=== PATIENT | male | born 1940 | race Caucasian/White ===

== ENCOUNTER 2018-05-21 13:25 | Emergency (ER) | payer OTHER ==
--- NOTE | 2018-05-21 14:46 | EDPHY ---
H & P Time Seen by Provider: 05/21/18 13:34 HPI/ROS: CHIEF COMPLAINT: Abscess on buttock HISTORY OF PRESENT ILLNESS: Patient states, using computer generated verbal communication as has ALS, he has had an abscess on his left buttock for about 3 days. Only painful over the last 24 hr. No fevers or chills. No other lesions. No nausea, vomiting, diarrhea. Patient is wheelchair dependent but does care for himself. Currently his is in rehab after hip fracture. Contents of 10 point review of systems otherwise negative except for what is mentioned in HPI. General Appearance: Alert, no distress. Eyes: Pupils equal and round no icterus Respiratory: No respiratory distress Neurological: Awake, alert, global weakness and rigidity secondary to AL as Skin: Warm and dry, no rashes. 1.5 cm fluctuant abscess to the left buttock Musculoskeletal: Fairly mobile upper extremities, lower extremities hyperreflexic and weak. No acute changes. Psychiatric: Patient is oriented X 3, there is no agitation. Medical/surgical history: ALS. Tonsillectomy. Social history: No tobacco, EtOH, drugs. Smoking Status: Former smoker Constitutional: Initial Vital Signs Temperature (C) 36.4 C 05/21/18 13:34 Heart Rate 80 05/21/18 13:34 Respiratory Rate 18 05/21/18 13:34 Blood Pressure 132/88 H 05/21/18 13:34 O2 Sat (%) 94 05/21/18 13:34 O2 Delivery Mode Room Air Allergies/Adverse Reactions: Sulfa (Sulfonamide Antibiotics) Allergy (Verified 05/21/18 13:29) Swelling/neck,face,throat Home Medications: Medication Instructions Recorded ZYRTEC 01/19/11 Pravastatin Sodium 05/26/14 Eye Vitamin 05/21/18 Neudxa 05/21/18 Medical Decision Making Procedures: Procedure: Abscess drainage. The patient's abscess was located on the left buttock. I obtained verbal consent from the patient to drain the abscess who was informed about the possibility of bleeding and pain. The abscess was incised with a 15. Scalpel and a small amount of purulent drainage was expressed as well as a piece of sebaceous tissue consistent with sebaceous cyst. I irrigated the wound and placed some packing. The patient tolerated the procedure well. The procedure was performed by myself at 2:45 p.m.. Differential Diagnosis: Differential diagnosis includes but is not limited to abscess, sebaceous cyst, perirectal abscess, pilonidal cyst. After evaluation uncomplicated sebaceous cyst incised and drained from the left buttock. No surrounding cellulitis or other indications for antibiotics. Discussed wound care, follow-up, return precautions. Patient voices understanding via electronic device. Stable for discharge. Departure - Departure Disposition: Home, Routine, Self-Care Clinical Impression: Left buttock abscess Condition: Fair Instructions: Abscess (ED) Additional Instructions: Keep area clean and dry, cover with gauze as there may be continue drainage for the next day or 2. Follow up with her primary care physician for wound check in 48 hr or return to the emergency department if you think it is getting worse in any way. Referrals: NONE *PRIMARY CARE P,. [Primary Care Provider] - As per Instructions
[2018-05-21 14:54] VITALS: BP 122/83
== END 2018-05-21 14:58 | disposition home or self-care (01) ==
LOC: CED 13:25
PROC: 0H98XZZ Drainage of Buttock Skin, External Approach (ICD-10-PCS; principal; 2018-05-21)
DX: L02.31 Cutaneous abscess of buttock (principal)